=== PATIENT | male | born 1995 | race Two or more races ===

== ENCOUNTER 2017-04-19 08:05 | Emergency (ER) | payer SELFPAY ==
[~2017-04-19] VITALS: Ht 188 cm; Wt 70.6 kg
[2017-04-19 08:07] VITALS: BP 108/72
== END 2017-04-19 09:10 | disposition home or self-care (01) ==
LOC: ED 09:00
DX: K05.00 Acute gingivitis, plaque induced (principal); F12.10 Cannabis abuse, uncomplicated
CPT/HCPCS: 99283

== ENCOUNTER 2019-02-19 22:51 | Emergency (ER) | payer MEDICAID, OTHER ==
[~2019-02-19] VITALS: Ht 177.8 cm; Wt 80.0 kg
[2019-02-19 22:53] VITALS: BP 144/88
== END 2019-02-20 00:39 | disposition home or self-care (01) ==
LOC: ED 23:59
DX: S83.92XA Sprain of unspecified site of left knee, initial encounter (principal); X50.1XXA Overexertion from prolonged static or awkward postures, initial encounter; Y93.89 Activity, other specified; Y92.009 Unspecified place in unspecified non-institutional (private) residence as the place of occurrence of the external cause; Y99.8 Other external cause status
CPT/HCPCS: 99283